=== PATIENT | female | born 1965 | race African-American/Black ===

== ENCOUNTER 2018-11-27 18:23 | Emergency (ER) | payer OTHER ==
[2018-11-27 18:39] VITALS: BP 188/104; PULSE 92; TEMP 97.9; BMI 20.2
--- NOTE | 2018-11-27 18:53 | PDOC ---
History of Present Illness - General Stated Complaint: Nausea/Vomiting Time Seen by Provider: 11/27/18 18:51 History Source: Patient Exam Limitations: No Limitations - History of Present Illness Initial Comments: 11/27/18 18:51 52 year old woman BIBA from [facility] with a history of HTN, HLD, CVA w/ L sided hemiplegia, hesitant speech, anxiety, stage 3 renal insuff who presents with elevated blood pressure and 1 episode of NBNB vomiting at approx 1500. Patient admits to baseline hematuria. She denies chest pain, shortness of breath, abdominal pain, dysuria, recent fever, recent illness, coughing, rhinorrhea, congestion, headache, loss of consciousness, changes in vision or hearing. At bedside patient still complains of some nausea, but has no other complaints. Pt w/baseline elevated creatinine levels. PMHX: as in HPI Meds: clonidine, hydralazine, losartan, norvasc, atorvastatin Allergies: NKDA \ Past History - Past Medical History Allergies/Adverse Reactions: Allergies Allergy/AdvReac Type Severity Reaction Status Date / Time No Known Allergies Allergy Verified 05/13/18 18:14 Home Medications: Ambulatory Orders Cephalexin Monohydrate [Keflex -] 500 mg PO Q6H #20 capsule 05/13/18 Cephalexin Monohydrate [Keflex -] 500 mg PO BID 7 Days #14 capsule 11/27/18 Ondansetron [Zofran -] 4 mg PO BID #14 tablet 11/27/18 CVA: Yes (TIA, flacid hemiplegia left side, hesitant speech) COPD: No GI Disorders: Yes (constipation, heartburn) HTN: Yes Psychiatric Problems: Yes (anxiety,) - Suicide/Smoking/Psychosocial Hx Smoking History: Never smoked Have you smoked in the past 12 months: No Hx Alcohol Use: No Drug/Substance Use Hx: No Substance Use Type: None *Physical Exam - Vital Signs Last Vital Signs Temp Pulse Resp BP Pulse Ox 97.9 F 92 H 16 188/104 H 99 11/27/18 18:38 11/27/18 18:38 11/27/18 18:38 11/27/18 18:38 11/27/18 18:38 - Physical Exam Comments: 11/27/18 21:16 GENERAL: Awake, alert, and fully oriented, lethargic appearing HEAD: No signs of trauma, normocephalic, atraumatic EYES: EOMI, sclera anicteric, conjunctiva clear ENT: oropharynx clear without exudates. Moist mucosa NECK: Normal ROM, supple LUNGS: No distress, speaks full sentences, clear to auscultation bilaterally HEART: Regular rate and rhythm, normal S1 and S2, no murmurs, rubs or gallops, peripheral pulses normal and equal bilaterally. ABDOMEN: Soft, nontender, normoactive bowel sounds. No guarding, no rebound. No masses EXTREMITIES : Normal inspection, Normal range of motion, no edema. No clubbing or cyanosis. NEUROLOGICAL: Cranial nerves II through XII grossly intact. 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, 4/5 L leg strength, 5/ 5 R leg strength SKIN: Warm, Dry, normal turgor, no rashes or lesions noted Moderate Sedation - Procedure Monitoring Vital Signs: Procedure Monitoring Vital Signs Temperature 97.9 F 11/27/18 18:38 Pulse Rate 92 H 11/27/18 18:38 Respiratory Rate 16 11/27/18 18:38 Blood Pressure 188/104 H 11/27/18 18:38 O2 Sat by Pulse Oximetry (%) 99 11/27/18 18:38 ED Treatment Course - LABORATORY CBC & Chemistry Diagram: 11/27/18 19:52 11/27/18 19:52 Medical Decision Making - Medical Decision Making 11/27/18 21:07 52 year old woman BIBA from [facility] with a history of HTN, HLD, CVA w/ L sided hemiplegia, hesitant speech, anxiety, stage 3 renal insuff who presents with elevated blood pressure and 1 episode of NBNB vomiting at approx 1500. Patient admits to baseline hematuria. She denies chest pain, shortness of breath, abdominal pain, dysuria, recent fever, recent illness, coughing, rhinorrhea, congestion, headache, loss of consciousness, changes in vision or hearing. At bedside patient still complains of some nausea, but has no other complaints. ED Course: Rectal temp 98.5 11/27/18 21:11 trop negative cbc - unremarkable cmp: elevated bun and cr (baseline) 11/27/18 21:23 negative heme occult 11/27/18 21:25 UA: positive for uTI rocephin given. Repeat vitals within normal limits bp 155/69 hr 69 O299 Patient stable to go home. PO trial successful. Still complains of some nausea. IFEANYI negron DC Patient stable for discharge. Informed of all lab and imaging results. Given follow up instructions and strict return precautions. Patient expressed understanding and agree to plan. *DC/Admit/Observation/Transfer Diagnosis at time of Disposition: UTI (urinary tract infection) - Discharge Dispostion Disposition: HOME Condition at time of disposition: Stable Decision to Admit order: No - Prescriptions Prescriptions: Cephalexin Monohydrate [Keflex -] 500 mg PO BID 7 Days #14 capsule Ondansetron [Zofran -] 4 mg PO BID #14 tablet - Referrals Referrals: Onofre Murcia MD [Primary Care Provider] - - Patient Instructions Printed Discharge Instructions: DI for Urinary Tract Infection (UTI) Additional Instructions: You were seen in the ED for complaints of elevated blood pressure and vomiting. In the ED you were evaluated with labwork. Your results were significant for urinary tract infection and you showed improvement of hypertension. There does not appear to be an acute need for immediate hospitalization. You are advised to follow up with your Primary Care Physician within 1 week. You were given a prescription for antibiotics and anti-nausea medication. Return to the ED immediately if you experience worsening vomiting, nausea, fever , abdominal pain, bright red blood in the urine or blood in the stool. - Post Discharge Activity
--- NOTE | 2018-11-27 18:59 | PDOC ---
Attending Attestation - HPI HPI: 11/27/18 21:04 The patient is a 52 year old female, with a significant past medical history of HTN, hyperlipidemia, CVA with left-side hemiplegia and hesitant speech, and anxiety, who presents to the emergency department from [facility] with complaint of elevated blood pressure, one episode of NBNB vomiting, and persistent nausea. The patient denies chest pain, shortness of breath, headache and dizziness. The patient denies fever, chills,diarrhea and constipation. The patient denies dysuria, frequency, urgency and hematuria. Allergies: NKDA - Physicial Exam PE: 11/27/18 21:05 Constitutional: Awake, alert, oriented. No acute distress. Head: Normocephalic. Atraumatic Eyes: PERRL. EOMI. Conjunctivae are not pale. ENT: Mucous membranes are moist and intact. Posterior pharynx without exudates or erythema. Uvula midline. Neck: Supple. Full ROM. No lymphadenopathy. Cardiovascular: (+) tachycardic rate. Regular rhythm. S1, S2 regular. Distal pulses are 2+ and symmetric. Pulmonary/Chest: No evidence of respiratory distress. Clear to auscultation bilaterally No wheezing, rales or rhonchi. Abdominal: (+) suprapubic left lower and left upper quadrant tenderness. Soft and non-distended. No rebound, guarding or rigidity. No organomegaly. No palpable masses. Good bowel sounds. Back: No CVA tenderness. Musculoskeletal: No edema. No cyanosis. No clubbing. Full range of motion in all extremities. Nocalf tenderness. Radial/pedal pulses are intact and 2+ bilaterally Skin: (+) hot to touch. Skin is dry. No petechiae. No purpura. Neurological: Alert and oriented to person, place, and time. Cranial nerves II -XII are grossly intact. Normal speech. Strength is grossly symmetric. No sensory deficits. Psychiatric: (+) flat affect and poor eye contact. appears withdrawn. - Medical Decision Making 11/27/18 21:07 Documentation prepared by Claribel Odell, acting as registered medical assistant for Karen Dash DO <Claribel Odell - Last Filed: 11/27/18 21:04> - Resident Resident Name: Dory Santos - ED Attending Attestation I have performed the following: I have examined & evaluated the patient, The case was reviewed & discussed with the resident, I agree w/resident's findings & plan, Exceptions are as noted - Medical Decision Making 11/27/18 18:59 I, Dr. Karen Dash, DO, attest that this document has been prepared under my direction and personally reviewed by me in its entirety. I further attest, that it accurately reflects all work, treatment, procedures and medical decision -making performed by me. 11/27/18 20:46 a/p: 52yo female sent from [facility] for eval of elevated BP and an episode of n/v -pt denies abd pain -c/o nausea now -no henderson, no blurred vision, no cp/sob/abd pain -unsure last BM -pt with elevated BP in the ED 11/27/18 22:03 pt with UTI will start rocephin 11/27/18 23:10 cxr does not show acute lung pathology, mild cardiomegaly - pending official read no vomiting in the ED PO challenge given 11/28/18 01:43 pt tolerated po stable for dc back to the [facility] with oral abx for uti <Karen Dash - Last Filed: 11/28/18 01:43>
[2018-11-27] MEDS ORDERED: ONDANSETRON 4 MG/2 ML VIAL IVPUSH ONE (19:08)
[2018-11-27] MEDS ORDERED: ACETAMINOPHEN 1000 MG/100 ML VIAL (NON FORMULARY) IVPB ONE (19:08)
[2018-11-27 20:01] LABS: HEMATOCRIT 34.4 % (32.4-45.2); HEMOGLOBIN 11.8 GM/dL (10.7-15.3); MCH 27.6 pg (25.7-33.7); MCHC 34.2 g/dl (32.0-36.0); MEAN CELL VOLUME 80.6 fl (80-96); MEAN PLT VOLUME 7.9 fl (7.5-11.1); PLATELET COUNT 306 K/MM3 (134-434); RBC 4.27 M/mm3 (3.60-5.2); RDW 16.1 % (11.6-15.6); WHITE BLOOD COUNT 4.1 K/mm3 (4.0-10.0)
[2018-11-27 20:24] LABS: ALBUMIN 4.4 g/dl (3.4-5.0); ALK PHOS 68 U/L (45-117); ANION GAP 7 MMOL/L (8-16); BILIRUBIN,TOTAL 0.3 mg/dL (0.2-1); BLOOD UREA NITROGEN 22 mg/dL (7-18); CALCIUM 11.6 mg/dL (8.5-10.1); CHLORIDE 102 mmol/L (98-107); CO2 30 mmol/L (21-32); GLUCOSE,RANDOM 110 mg/dL (74-106); POTASSIUM 3.5 mmol/L (3.5-5.1); SGOT/AST 16 U/L (15-37); SGPT/ALT 20 U/L (13-61); SODIUM 139 mmol/L (136-145); TOT PROT 7.8 g/dl (6.4-8.2)
[2018-11-27] MEDS ORDERED: ACETAMINOPHEN INJECTION 100 ML IVPB ONE (21:04)
[2018-11-27] MEDS ORDERED: SODIUM CHLORIDE 1,000 ML IV SCH (21:30)
[2018-11-27 21:41] LABS: URINE APPEARANCE SLCLOUDY; URINE BILIRUBIN NEGATIVE (<2.0 mg/dL); URINE COLOR YELLOW; URINE GLUCOSE (UA) NEGATIVE (NEGATIVE); URINE KETONE NEGATIVE (NEGATIVE); URINE LEUK ESTERASE 2+ (NEGATIVE); URINE NITRITE NEGATIVE (NEGATIVE); URINE PROTEIN 2+ (NEGATIVE); URINE UROBILINOGEN NEGATIVE mg/dL (0.2-1.0)
[2018-11-27 21:46] LABS: EPI CELLS RARE /HPF (FEW); URINE BACTERIA RARE /hpf (NONE SEEN); URINE MUCUS RARE
[2018-11-27] MEDS ORDERED: CEFTRIAXONE 1 GM in DEXTROSE 5%-WATER - 100 ML IVPB ONE (22:02)
[2018-11-27] MEDS ORDERED: ONDANSETRON *ODT* 4 MG TABLET SL ONE (23:21)
[2018-11-27] MEDS ORDERED: ONDANSETRON *ODT* 4 MG TABLET ONE (23:44)
== END 2018-11-28 03:53 | disposition home or self-care (01) ==
LOC: JER 18:23
PROC: 3E03329 Introduction of Other Anti-infective into Peripheral Vein, Percutaneous Approach (ICD-10-PCS; principal; 2018-11-27)
PROC: 3E033NZ Introduction of Analgesics, Hypnotics, Sedatives into Peripheral Vein, Percutaneous Approach (ICD-10-PCS; 2018-11-27)
PROC: 3E033GC Introduction of Other Therapeutic Substance into Peripheral Vein, Percutaneous Approach (ICD-10-PCS; 2018-11-27)
DX: N39.0 Urinary tract infection, site not specified (principal); B96.89 Other specified bacterial agents as the cause of diseases classified elsewhere; I69.854 Hemiplegia and hemiparesis following other cerebrovascular disease affecting left non-dominant side; I69.828 Other speech and language deficits following other cerebrovascular disease; N18.3 Chronic kidney disease, stage 3 (moderate); I12.9 Hypertensive chronic kidney disease with stage 1 through stage 4 chronic kidney disease, or unspecified chronic kidney disease; E78.5 Hyperlipidemia, unspecified
CPT/HCPCS: 36415; 71045-TC-FY; 80053; 81003; 81015; 82272; 84484; 85027; 87086; 87186; 99281-25; J0131; J7030; Q0162